=== PATIENT | female | born 1990 | race Caucasian/White ===

== ENCOUNTER 2018-06-12 09:18 | Emergency (ER) | payer OTHER ==
[2018-06-12 09:47] VITALS: BP 103/68
--- NOTE | 2018-06-12 10:09 | UC ---
Eye Complaint HPI - HPI Summary HPI Summary: 28 y/o female presents to the urgent care c/o RT eye redness and pain w/ yellowish crusting discharge for the past 2 days. Pt reports [place] was [place] [facility] and a bug flew into her eye about 2 days ago. Pt states eye pain is mild 3/ 10 at touch on the lateral lower eyelid radiating the her RT ear. Pt denies eye swelling, visual disturbance,photophobia, JOYCE, dizziness, SOB, chest pain, abdominal pain, N/V/D. Pt has not taking anything to alleviate symptoms. - History of Current Complaint Chief Complaint: UCEye Stated Complaint: RIGHT EYE CONCERN Time Seen by Provider: 06/12/18 10:06 Hx Obtained From: Patient Hx Last Menstrual Period: 3 weeks ?: No Onset/Duration: Gradual Onset, Lasting Days - 2 days, Still Present, Worse Since - yesterday Timing: Constant Severity Initially: Mild Severity Currently: Mild Pain Intensity: 2 Pain Scale Used: 0-10 Numeric Location of Injury: Conjunctiva - RT red w/ yellowish drainage Character: Dull Aggravating Factor(s): Blinking Alleviating Factor(s): Nothing Associated Signs And Symptoms: Positive: Drainage (Purulent) - yellowish. Negative: Vision Impairment Bilateral, Fever - Risk Factors Penetrating Injury Risk Factor: Negative Globe Rupture Risk Factors: Negative Acute Glaucoma Risk Factors: Negative Optic Artery Occlusion Risk Factors: Negative - Allergies/Home Medications Allergies/Adverse Reactions: Allergies Allergy/AdvReac Type Severity Reaction Status Date / Time all 'cillins Allergy Hives Uncoded 06/12/18 09:48 Home Medications: Home Medications Ibuprofen TAB* [Motrin TAB* 400 MG] 400 mg PO ONCE PRN 06/12/18 [History Confirmed 06/12/18] Norethindrone-Ethinyl Estrad [Dasetta 1-35-28 Tablet] 1 tab PO DAILY 06/12/18 [ History Confirmed 06/12/18] PMH/Surg Hx/FS Hx/Imm Hx Previously Healthy: Yes Respiratory History: Asthma - as a child well controlled - Surgical History Surgical History: Yes Surgery Procedure, Year, and Place: B/L inguinal 1998; tonsils 2008 - Family History Known Family History: Positive: Hypertension - Social History Occupation: Employed Full-time Lives: With Family Alcohol Use: Daily Alcohol Amount: 3 Substance Use Type: None Smoking Status (MU): Former Smoker When Did the Patient Quit Smoking/Using Tobacco: May 2018 - Immunization History Most Recent Tetanus Shot: greater than 10 yrs Review of Systems Constitutional: Negative Skin: Negative Eyes: Drainage - yellowish, Eye Redness - RT eye redness and painful ENT: Negative Respiratory: Negative Cardiovascular: Negative Gastrointestinal: Negative Motor: Negative Neurovascular: Negative Musculoskeletal: Negative Neurological: Negative Psychological: Negative Is Patient Immunocompromised?: No All Other Systems Reviewed And Are Negative: Yes Physical Exam - Summary Physical Exam Summary: Vital Signs Reviewed: Yes General: Well appearing, well nourished female in no apparent pain distress Eyes: Positive: RT Conjunctiva Inflamed - Visual acuity: WNL,Visual gotti: full to confrontation. NO periorbital soft tissue swelling, positive lateral side of RT lower eyelid with erythema and white discrete pustule in the lateral side of eyelid, tender to palpation. PERRLA, EOMI intact w/out limitation or complaint of pain. eyelashes clear. mild tearing and yellowish drainage observed. No ciliary flush. No chemosis, No photophobia. Normal fundoscopic exam; no proptosis, exophthalmos, nystagmus. ENT: Positive: Normal ENT inspection, Hearing grossly normal, Pharynx normal, Nasal congestion, Nasal drainage - clear, TMs normal - B/L external ear canal clear , TM's WNL. Negative: Tonsillar swelling, Tonsillar exudate Neck: Positive: Supple, Nontender, No Lymphadenopathy Respiratory: Positive: Chest nontender, Lungs clear, Normal breath sounds, No respiratory distress Cardiovascular: Positive: RRR, No Murmur, Pulses Normal, Brisk Capillary Refill Abdomen Description: Positive: Nontender, No Organomegaly, Soft. Negative: CVA Tenderness (R), CVA Tenderness (L) Bowel Sounds: Positive: Present Musculoskeletal: Positive: Strength Intact, ROM Intact, No Edema Neurological Exam: Normal Psychological Exam: Normal Skin Exam: Normal Triage Information Reviewed: Yes Vital Signs: Initial Vital Signs Temp 98.6 F 06/12/18 09:35 Pulse 66 06/12/18 09:35 Resp 18 06/12/18 09:35 BP 103/68 06/12/18 09:35 Pulse Ox 100 06/12/18 09:35 Eye Complaint Course/Dx - Course Course Of Treatment: 28 y/o female presents to the urgent care c/o RT eye redness and pain w/ yellowish crusting discharge for the past 2 days. Pt reports she was [place] and a bug flew into her eye about 2 days ago. Pt states eye pain is mild 3/10 at touch on the lateral lower eyelid radiating the her RT ear. Pt denies eye swelling, visual disturbance,photophobia, JOYCE, dizziness, SOB, chest pain, abdominal pain, N/V/D. Pt has not taking anything to alleviate symptoms. Hx obtained. Pt with a RT lower eyelid internal hordeolum and RT eye bacterial conjunctivitis on examination. Pt Rx Polymixin/ trimotriptim Ophthalmic Ointment.Pt advised to apply warm compresses and massage the eye with gentle pressure 4-5 times for 10-15min throughout the day. Then apply ABX and if not improvement of symptoms to f/u with mri assistant DR Ramsey for further evaluation and treatment. PT understood and agreed with plan of care. - Differential Dx/Diagnosis Differential Diagnosis/HQI/PQRI: Conjunctivitis, Corneal Abrasion, Periorbital Cellulitis, Orbital Cellulitis, Other - insect bite Provider Diagnoses: 1- RT eye bacterial conjunctivitis. 2- RT eye stye Discharge - Sign-Out/Discharge Documenting (check all that apply): Patient Departure - D/C home - Discharge Plan Condition: Stable Disposition: HOME Prescriptions: Polymyx/Trimethoprim OPTH* [Polytrim OPHTH*] 1 drop RIGHT EYE Q3H #1 btl Patient Education Materials: Stye (ED), Conjunctivitis (ED) Referrals: [facility] [Outside] - If Needed Teresa Ramsey MD [Medical Doctor] - If Needed Additional Instructions: 1-Please apply ophthalmic drops in your RT eye as directed. Please apply warm compresses and massage the eye with gentle pressure 4-5 times for 10-15min throughout the day. Encourage hand washing to avoid spreading. 2- If you do not improve or if symptoms worsen please f/u with mri assistant DR Ramsey for further evaluation and treatment Per institutional requirements, I have reviewed the chart, however, I was not consulted specifically or made aware of this patient by the above midlevel provider. I did not personally evaluate, interact with , or disposition this patient. - Billing Disposition and Condition Condition: STABLE Disposition: Home
== END 2018-06-12 10:33 | disposition home or self-care (01) ==
LOC: UCCORT 09:18
DX: Z87.891 Personal history of nicotine dependence (principal); H10.89 Other conjunctivitis; A49.9 Bacterial infection, unspecified; H00.022 Hordeolum internum right lower eyelid; Z88.0 Allergy status to penicillin
CPT/HCPCS: 99202; G0463